=== PATIENT | male | born 1960 | race Caucasian/White ===

== ENCOUNTER → 2021-12-05 11:21 | Outpatient (CLI) | payer BC, SELFPAY ==
[2021-12-12 09:34] LABS: Pancreatic Elastase, Fecal 229 (>200)
== END ==
PROVIDERS: Visit Provider Internal Medicine Gastroenterology
DX: R10.13 Epigastric pain (principal); R14.0 Abdominal distension (gaseous); K21.9 Gastro-esophageal reflux disease without esophagitis; R14.2 Eructation; R12 Heartburn; R68.81 Early satiety
CPT/HCPCS: 82656

== ENCOUNTER 2021-12-23 19:52 | Emergency (ER) | payer BC, SELFPAY ==
[2021-12-23 19:53] VITALS: BP 148/92; PULSE 67; RESP 16; TEMP 36.7; O2SAT 97; BMI 27.8
--- NOTE | 2021-12-23 20:33 | CT_ITS ---
PROCEDURE INFORMATION: Exam: CT Abdomen And Pelvis Without Contrast Exam date and time: 12/23/2021 9:03 PM Age: 61 years old Clinical indication: Abdominal pain; Left; Patient HX: Lt flank pain; Additional info: Abd pain TECHNIQUE: Imaging protocol: Computed tomography of the abdomen and pelvis without contrast. Radiation optimization: All CT scans at this facility use at least one of these dose optimization techniques: automated exposure control; mA and/or kV adjustment per patient size (includes targeted exams where dose is matched to clinical indication); or iterative reconstruction. COMPARISON: No relevant prior studies available. FINDINGS: Diaphragm: Small-sized hiatal hernia. Liver: Hepatic steatosis. Gallbladder and bile ducts: Gallbladder surgically absent. Pancreas: Normal. Spleen: Splenic calcifications, compatible with prior granulomatous disease. Adrenal glands: Normal. No mass. Kidneys and ureters: Punctate nonobstructive bilateral nephrolithiasis. Left hydroureteronephrosis, with obstructive 2 mm calculus in the distal left ureter (series 3, image 105). Stomach and bowel: Colonic diverticulosis. Appendix: Appendix normal. Intraperitoneal space: Unremarkable. No free air. No significant fluid collection. Vasculature: Phleboliths within the pelvis. Lymph nodes: Unremarkable. No enlarged lymph nodes. Urinary bladder: Unremarkable as visualized. Reproductive: Unremarkable as visualized. Bones/joints: No acute abnormality. Soft tissues: Small bilateral fat containing inguinal hernias. IMPRESSION: Left hydroureteronephrosis, with obstructive 2 mm calculus in the distal left ureter (series 3, image 105).
[2021-12-23 20:45] LABS: Basophils % 0.4 % (0.1-2.0); Eosinophils # 0.1 K/mm3 (0.0-0.4); Eosinophils % 0.8 % (0.1-12.0); Hematocrit 42.3 % (42.0-52.0); Hemoglobin 15.4 g/dL (14.1-18.0); Lymphocytes # 2.4 K/mm3 (0.7-4.5); Lymphocytes % 31.7 % (10-50); Mean Corpuscular HGB Conc 36.4 g/dL (31.8-35.4); Mean Corpuscular Hemoglobin 31.7 pg (27.0-31.2); Mean Corpuscular Volume 86.9 fl (80-94); Mean Platelet Volume 9.2 fl (7.4-10.4); Monocytes % 13.3 % (1.7-9.3); Neutrophils # 4.1 K/mm3 (1.8-7.8); Neutrophils % 53.9 % (37.0-80.0); Platelet Count 168 K/mm3 (142-424); Red Blood Count 4.86 M/mm3 (4.60-6.20); Red Cell Distribution Width 13.1 % (11.5-17.5); White Blood Count 7.7 K/mm3 (4.8-10.8)
[2021-12-23 20:51] LABS: Alanine Aminotransferase 29 U/L (12-78); Albumin Level 4.2 g/dl (3.5-5.0); Albumin/Globulin Ratio 1.7 (1.1-1.8); Alkaline Phosphatase 40 U/L (38-126); Anion Gap 11.1 mEq/L (5-15); Aspartate Amino Transferase 39 U/L (17-59); Bilirubin,Total 0.8 mg/dl (0.2-1.3); Blood Urea Nitrogen 25 mg/dl (9-20); Calcium 9.2 mg/dl (8.4-10.2); Carbon Dioxide 27 mmol/L (22.0-30.0); Chloride 106 mmol/L (98-107); Creatinine Clearance Estimated 62 mL/min (50-200); Estimated Glomerular Filt Rate 44 ml/min (>60); GFR (African American) 53 ML/MIN (>60); Globulin 2.5 g/dL (1.3-3.2); Glucose 107 mg/dl (74-100); Potassium 4.1 mmoL/L (3.5-5.1); Sodium 140 mmol/L (136-145); Total Protein,Serum 6.7 g/dl (6.3-8.2)
[2021-12-23 20:56] LABS: C-Reactive Protein 1.1 mg/L (0-4)
[2021-12-23 21:09] LABS: Microscopic, Urine URINE MICROSCOPIC (MICROSCOPIC)
[2021-12-23 21:10] LABS: Appearance,Urine CLEAR (Clear); Bilirubin,Urine Negative (Negative); Blood, Urine 1+ (Negative); Color,Urine YELLOW (Yellow); Glucose,Urine (UA) Negative (Negative); Ketones,Urine Negative (Negative); Leukocyte Esterase,Urine Negative (Negative); Nitrate,Urine Negative (Negative); Protein,Urine Negative (Negative); Specific Gravity, Urine >= 1.030 (1.005-1.030); Urobilinogen,Urine 0.2 EU/dl (0.2)
[2021-12-23 21:10] LABS: Procalcitonin 0.112 ng/mL (0.0-2.0)
[2021-12-23 21:29] LABS: Erythrocyte Sedimentation Rate 2 mm/hr (0-20)
[2021-12-23 21:30] LABS: WBC,Urine Occasional #/hpf (0-3)
--- NOTE | 2021-12-23 21:36 | HMH.EDNVD ---
ED Disposition Clinical Impression: Renal colic on left side, Renal insufficiency Disposition: Home, Self-Care Condition on Discharge: Good Instructions: DI for Kidney Stones Additional Instructions: fluids and see pcp for follow up and urology Prescriptions: Tamsulosin HCl [Flomax 0.4mg capsule] 0.4 mg PO HS #10 cap Transmission Status: Pending to Medicine [facility] Referrals: Everardo Benitez [Primary Care Provider] - Dell Oden MD [Staff Physician] - - Critical Care Critical Care Time: No Attestation: On 12/23/21, the high probability of a clinically significant, sudden or life threatening deterioration of the following system(s) required my full and direct attention, intervention and personal management. The time I documented below is in addition to time spent performing reported procedures but includes the following listed in this critical care notation. Medical Decision Making - Medical Records Medical records reviewed: Yes: I reviewed the patient's medical records. - Denny Inquiry Pt receiving controlled substance: No Vital Signs: 12/23/21 19:53 Temperature 98.0 F Temperature Source Oral Pulse Rate [Right] 67 Respiratory Rate 16 Blood Pressure [Right Arm] 148/92 H Blood Pressure Mean [Right Arm] 110 02 Sat by Pulse Oximetry 97 - Lab Data Lab results reviewed: Yes: I reviewed the patient's lab results. Lab Results 12/23/21 20:25: WBC 7.7, RBC 4.86, Hgb 15.4, Hct 42.3, MCV 86.9, MCH 31.7 H, MCHC 36.4 H, RDW 13.1, Plt Count 168, MPV 9.2, Neut % (Auto) 53.9, Lymph % (Auto) 31.7, Tama % (Auto) 13.3 H, Eos % (Auto) 0.8, Baso % (Auto) 0.4, Neut # (Auto) 4.1, Lymph # (Auto) 2.4, Tama # (Auto) 1.0, Eos # (Auto) 0.1, Baso # (Auto) 0.0, ESR 2 12/23/21 20:25: Sodium 140, Potassium 4.1, Chloride 106, Carbon Dioxide 27, Anion Gap 11.1, BUN 25 H, Creatinine 1.60 H, Estimated Creat Clear 62, Estimated GFR 44 L, Est GFR ( Amer) 53 L, Glucose 107 H, Calcium 9.2, Total Bilirubin 0.8, AST 39, ALT 29, Alkaline Phosphatase 40, C-Reactive Protein 1.1, Total Protein 6.7, Albumin 4.2, Globulin 2.5, Albumin/Globulin Ratio 1.7, Procalcitonin 0.112 12/23/21 21:04: Urine Color Yellow, Urine Appearance Clear, Urine pH 6.0, Ur Specific [place] >= 1.030, Urine Protein Negative, Urine Glucose (UA) Negative, Urine Ketones Negative, Urine Blood 1+, Urine Nitrate Negative, Urine Bilirubin Negative, Urine Urobilinogen 0.2, Ur Leukocyte Esterase Negative, Urine RBC 3-5, Urine WBC Occasional, Ur Squamous Epith Cells None, Urine Bacteria None Result diagrams: 12/23/21 20:25 12/23/21 20:25 Orders (Tests/Meds): ED MEDICATIONS Generic Name Dose Route Start Last Admin Trade Name Freq PRN Reason Stop Dose Admin Sodium Chloride 1,000 mls @ 999 mls/hr 12/23/21 20:45 12/23/21 20:56 Sod Chlor 0.9% 1000ml Bag IV 12/23/21 21:45 999 mls/hr .[id number] LARRY Administration Discontinued Medications Generic Name Dose Route Start Last Admin Trade Name Freq PRN Reason Stop Dose Admin Ketorolac Tromethamine 30 mg 12/23/21 20:34 12/23/21 20:56 Ketorolac 30mg/Ml Vial IV 12/23/21 20:35 30 mg ONCE ONE Administration Ondansetron HCl 4 mg 12/23/21 20:34 12/23/21 20:56 Ondansetron 4mg/2ml Vial IV 12/23/21 20:35 4 mg ONCE ONE Administration Tamsulosin HCl 0.4 mg 12/24/21 21:00 Tamsulosin 0.4mg Capsule PO 01/23/22 20:59 HS LARRY Tamsulosin HCl 0.4 mg 12/23/21 22:32 Tamsulosin 0.4mg Capsule PO 12/23/21 22:33 ONCE ONE - CT Data CT Scan: Abdomen, Pelvis Time Received: 22:[address] Reviewed: Yes: I have viewed the radiologist's interpretation Preliminary Findings: Abnormal (2 mm lt stone ) Medical Decision Narrative: renal colic on lt with no gross hematuria Nausea/Vomiting/Diarrhea HPI - General Chief complaint: Abdominal Pain Stated complaint: adm pain Time Seen by Provider: 12/23/21 21:00 Mode of Arrival: Ambulatory Source of Information: Patient, Spouse, Me
[2021-12-23 22:38] VITALS: BP 134/78; PULSE 61; RESP 16; TEMP 36.7; O2SAT 98
== END 2021-12-23 22:49 | disposition home or self-care (01) ==
PROVIDERS: Emergency Provider Emergency Medicine; PCP Family Medicine
DX: N20.0 Calculus of kidney (principal); N28.9 Disorder of kidney and ureter, unspecified
CPT/HCPCS: 74176; 80053; 81001; 84145; 85025; 85651; 86140; 96365; 96375; 99284; J2405

== ENCOUNTER → 2022-12-03 08:14 | Outpatient (CLI) | payer OTHER, SELFPAY ==
--- NOTE | 2022-12-03 | CA_ITS ---
APPROVED REPORT Exam: Exercise Treadmill Technologist: Tyra Euceda, Ht: 5 ft 10 in Wt: 205 lbs BSA: 2.11 m2 HR: 54 bpm BP: 126/80 mmHg Rhythm: sinus jenelle, incomplete RBBB, low voltage QRS, cannot R/O old inferior CA Medical History Cardiac Risk Factors: HTN Stress Test Details Test: Shakir HR Resting HR: 61 bpm Max Heart Rate (APMHR): 158.578529 bpm Max HR Achieved: 140 bpm Target HR (85% APMHR): 134.087060 bpm % of APMHR: 88.61 Recovery HR: 116 bpm BP Resting BP: 121/81 mmHg Max BP: 169/79 mmHg Recovery BP: 169.0/79.0 mmHg ECG Resting ECG: sinus jenelle, incomplete RBBB, low voltage QRS, cannot R/O old inferior CA Clinical Exercise duration: 09:24 min Highest Stage Achieved: Exercise capacity: 10.1 METs Stress ECG Conclusion During shakir procotol 9:24 on shakir protocol. No CP noted or dizziness. No arrhythmias noted. RBBB developed during exercise which effects the anterior ST-T segment. Otherwise the ST response to exercise is within normal. Allowing for RBBB, GXT is normal. GXT only. Test Summary REST . . . . . . . Sitting REST . . . . . . . Standing REST 04:19 0.0 0.0 61 . 121/ 81 . . Stage 1 01:00 10.0 1.7 82 . . . . Stage 1 02:00 10.0 1.7 88 . . . . Stage 1 03:00 10.0 1.7 89 . 146/ 80 . . Stage 2 01:00 12.0 2.5 99 . . . . Stage 2 02:00 12.0 2.5 102 . . . . Stage 2 03:00 12.0 2.5 103 . 150/ 76 . . Stage 3 01:00 14.0 3.4 117 . . . . Stage 3 02:00 14.0 3.4 125 . . . . Stage 3 03:00 14.0 3.4 133 . 158/ 80 . . Stage 4 00:24 16.0 4.2 138 . . . Stop exercise at 09:24 RECOVERY 01:00 0.0 0.0 120 . . . . RECOVERY 02:00 0.0 0.0 91 . . . . RECOVERY 03:00 0.0 0.0 80 . 169/ 79 . . RECOVERY 04:00 0.0 0.0 82 . 156/ 76 . . RECOVERY 05:00 0.0 0.0 74 . 137/ 71 . . RECOVERY 05:35 0.0 0.0 72 . 137/ 71 . . Electronically signed by : Rashi Candelaria MD 12/03/2022 21:15:00
== END ==
PROVIDERS: PCP Family Medicine; Visit Provider Family Medicine
DX: R07.89 Other chest pain (principal)
CPT/HCPCS: 93017

== ENCOUNTER 2022-12-26 08:52 | Outpatient (CLI) | payer OTHER, SELFPAY ==
[2022-12-26 09:01] VITALS: BP 138/63; PULSE 53; RESP 18; TEMP 36.4; O2SAT 94; BMI 30.5
[2022-12-26 09:28] LABS: Anion Gap 11.2 mEq/L (5-15); Blood Urea Nitrogen 25 mg/dl (9-20); Calcium 8.6 mg/dl (8.4-10.2); Carbon Dioxide 30 mmol/L (22.0-30.0); Chloride 102 mmol/L (98-107); Creatinine Clearance Estimated 68 mL/min (50-200); Estimated Glomerular Filt Rate 47 ml/min (>60); GFR (African American) 57 ML/MIN (>60); Glucose 105 mg/dl (74-100); Potassium 4.2 mmoL/L (3.5-5.1); Sodium 139 mmol/L (136-145)
[2022-12-26 09:43] VITALS: BP 105/76; PULSE 52; RESP 18; O2SAT 99
--- NOTE | 2022-12-26 09:43 | PC.NURSE ---
Arrived to scan room, Pt lying on table for CT scan, no c/o at this time.
[2022-12-26 09:55] VITALS: BP 91/48; PULSE 47; RESP 18; O2SAT 99
--- NOTE | 2022-12-26 09:55 | PC.NURSE ---
Test complete, pt without c/o or reactions to dye.
--- NOTE | 2022-12-26 10:00 | PC.NURSE ---
Pt accompanied to waiting room where waiting. Pt to have another test requiring IV so #20 in R A/C left in place. Pt without C/O.
== END 2022-12-26 10:00 | disposition home or self-care (01) ==
LOC: RAD 08:53
PROVIDERS: PCP Family Medicine; Visit Provider Physician Assistant
DX: R07.9 Chest pain, unspecified (principal); R00.1 Bradycardia, unspecified; Q21.12 Patent foramen ovale; I10 Essential (primary) hypertension; E78.5 Hyperlipidemia, unspecified
CPT/HCPCS: 75574; 80048; 93306; Q9967

== ENCOUNTER → 2023-01-29 14:41 | Outpatient (POV) | payer OTHER, SELFPAY | PROVIDERS: Visit Provider Specialist/Technologist | DX: Z00.00 Encounter for general adult medical examination without abnormal findings (principal) ==

== ENCOUNTER → 2023-02-06 10:27 | Outpatient (CLI) | payer OTHER, SELFPAY | LOC: LAB 10:28 → RT 10:29 | PROVIDERS: PCP Family Medicine; Visit Provider Physician Assistant | DX: R42 Dizziness and giddiness (principal); R55 Syncope and collapse; R00.1 Bradycardia, unspecified; I10 Essential (primary) hypertension; I25.10 Atherosclerotic heart disease of native coronary artery without angina pectoris; N28.9 Disorder of kidney and ureter, unspecified; E78.5 Hyperlipidemia, unspecified | CPT/HCPCS: 93270 ==

== ENCOUNTER → 2023-02-18 12:39 | Outpatient (CLI) | payer OTHER, SELFPAY ==
--- NOTE | 2023-02-18 12:40 | CT_ITS ---
FINAL REPORT TECHNIQUE: Multiple axial CT angiography images were performed from the foramen magnum to the vertex before and during IV contrast administration. This study was performed with techniques to keep radiation doses as low as reasonably achievable (ALARA). Individualized dose reduction techniques using automated exposure control or adjustment of mA and/or kV according to the patient's size were employed. CLINICAL HISTORY: syncope, collapse, dizziness FINDINGS: No acute intracranial hemorrhage or large acute cortical infarct. The brain volume is normal for the patient's age. Ventricles are of bracket normal in size and configuration. No midline shift. The basal cisterns are patent. CTA HEAD: The major intracranial arterial system is patent without hemodynamically significant stenosis or major vessel occlusion.No aneurysm is identified. IMPRESSION: No acute intracranial hemorrhage or large acute cortical infarct. No evidence of vascular injury, aneurysm, hemodynamically significant stenosis or major vessel occlusion of the intracranial arterial system. Reviewed, Interpreted and Dictated by Shiraz Canela III, MD Transcribed by Julianna Meyer Authenticated and . [facility]
--- NOTE | 2023-02-18 12:40 | CT_ITS ---
FINAL REPORT TECHNIQUE: Thin section axial CT with IV contrast supplemented with multiplanar reconstruction under CT angiogram protocol. This study was performed with techniques to keep radiation doses as low as reasonably achievable (ALARA). Individualized dose reduction techniques using automated exposure control or adjustment of mA and/or kV according to the patient''s size were employed. NASCET criteria was utilized during interpretation. CLINICAL HISTORY: dizziness/near syncope FINDINGS: Aortic arch: Arch shows no significant narrowing. Great vessel origins are widely patent. Right carotid: No significant stenosis is seen of the cervical common or internal carotid artery. Left carotid: No significant stenosis is seen of the cervical common or internal carotid artery. Vertebral: Left vertebral artery is dominant. No significant stenosis is present. IMPRESSION: No significant stenosis identified. Reviewed, Interpreted and Dictated by Shiraz Canela III, MD Transcribed by Julianna Meyer Authenticated and [facility]
[2023-02-18 13:20] LABS: Blood Urea Nitrogen 23 mg/dl (9-20); Estimated Glomerular Filt Rate 56 ml/min (>60); GFR (African American) 68 ML/MIN (>60)
== END ==
PROVIDERS: PCP Family Medicine; Visit Provider Nurse Practitioner
DX: R42 Dizziness and giddiness (principal); R55 Syncope and collapse; R00.1 Bradycardia, unspecified; I25.10 Atherosclerotic heart disease of native coronary artery without angina pectoris; I10 Essential (primary) hypertension; E78.5 Hyperlipidemia, unspecified; N28.9 Disorder of kidney and ureter, unspecified
CPT/HCPCS: 36415; 70496; 70498; 82565; 84520; Q9967

== ENCOUNTER → 2023-02-25 12:08 | Outpatient (POV) | payer OTHER, SELFPAY | PROVIDERS: Visit Provider Specialist/Technologist | DX: Z00.00 Encounter for general adult medical examination without abnormal findings (principal) ==

== ENCOUNTER 2023-09-07 15:15 | Emergency (ER) | payer OTHER, SELFPAY ==
[2023-09-07] VITALS (20 sets, daily range): BP systolic 127–192; BP diastolic 89–122; PULSE 50–66; RESP 9–19; TEMP 36.8; O2SAT 95–100; BMI 29.4
--- NOTE | 2023-09-07 15:10 | ECG_ITS ---
APPROVED REPORT Exam: Resting ECG HR:59 bpm ECG Measurements Heart Rate 59 AXES ND 182 P 51 QRSd 109 QRS -1 QT 401 T 11 QTc 401 Conclusion SINUS BRADYCARDIA LOW QRS VOLTAGE IN PRECORDIAL LEADS [QRS DEFLECTION < 1.0 mV IN CHEST LEADS] BORDERLINE ECG UNCONFIRMED REPORT Electronically signed by : Rashi Candelaria MD 09/07/2023 19:55:49
--- NOTE | 2023-09-07 15:17 | XR_ITS ---
FINAL REPORT CLINICAL HISTORY: Precordial chest pain COMPARISON: None FINDINGS: PA and lateral views of the chest are obtained. There is no prior exam for comparison. The cardiac and mediastinal silhouettes are within normal limits. The lungs are clear. There is no pleural effusion, pneumothorax, or acute osseous abnormality. IMPRESSION: No radiographic evidence of acute cardiac or pulmonary disease. Reviewed, Interpreted and Dictated by Yanet Juárez MD Transcribed by Yancy Chu Authenticated and [facility]
--- NOTE | 2023-09-07 15:21 | ED_ITS ---
I was consulted by the ULISES, and we discussed the complexity of the problems being addressed. I approved the treatment and management plan for this patient's care in the emergency department, thus performing a substantive portion of the medical decision making. Khalif Higgins MD, MARICARMEN, FACE Discharge Plan Disposition Patient Disposition: Home, Self-Care Condition: Good Prescriptions Prescriptions: No Action celecoxib 200 mg capsule 200 mg PO BID fenofibrate micronized 134 mg capsule 134 mg PO HS pantoprazole 40 mg tablet,delayed release (DR/EC) 40 mg PO DAILY aspirin 81 mg tablet 81 mg PO DAILY Beano 400 unit tablet 800 unit PO DAILY PRN (Reason: Gastric Reflux) lisinopril 20 mg tablet 20 mg PO DAILY Qty: 90 1RF metoprolol tartrate 25 mg tablet See Rx Instructions .ROUTE .COMPLEX Qty: 60 5RF Dose Instruction: TAKE ONE TABLET BY MOUTH TWICE DAILY FOR BLOOD PRESSURE Rx Instructions: TAKE ONE TABLET BY MOUTH TWICE DAILY FOR BLOOD PRESSURE atorvastatin 40 mg tablet See Rx Instructions .ROUTE .COMPLEX Qty: 90 1RF Dose Instruction: TAKE ONE TABLET BY MOUTH ONCE DAILY Rx Instructions: TAKE ONE TABLET BY MOUTH ONCE DAILY tamsulosin 0.4 MG capsule 0.4 mg PO HS Referrals Follow up/Referrals: Felton Lombardi MD [Staff Physician] - See instructions ProviderJeramy MD [Referring] - See instructions Activity Restrictions/Add. Instructions Additional Instructions/Restrictions: Show up to Dr. Lombardi's clinic at 9 AM or at least call for appointment. Return to the ER if any worsening symptomology or as needed. Clinical Impressions Clinical Impression: Dizziness, Chest pain Discharge ED Provider: Khalif Higgins HPI <JACKSON Abreu - Last Filed: 09/07/23 20:32> General Chief Complaint: Chest Pain Stated Complaint: Chest Pain Time Seen by Provider: 09/07/23 15:21 Mode of Arrival: Wheelchair Source of Information: Patient Limitations: No Limitations Description of Symptoms (Recalled from ER Triage Doc. by RN): Pt reports elevated BP for 2 days and has had c/o intermittent, sharp chest pain since last night. Pt reports home BP of 160's/100's. Also endorses nausea, BUTT, dizziness. History of Present Illness HPI narrative: Has a longstanding history of hypertension who follows with Dr. Lombardi's group. Patient reports headache dizziness and intermittent sharp left-sided chest pain that per his report radiates down his left arm occasionally but not persistently. Patient has no diaphoresis no nausea no vomiting no diarrhea no shortness of breath no sick contacts. Headache bihemispheric with no focal neurologic symptoms including visual changes. Patient does report dizziness intermittently. Related Data Home Medications Medication Instructions Recorded Confirmed [id number] 400 unit 800 unit PO DAILY PRN Gastric 12/10/22 06/01/23 tablet (Beano) Reflux aspirin 81 mg tablet 81 mg PO DAILY Blood thinner 12/10/22 06/01/23 celecoxib 200 mg capsule 200 mg PO BID Arthritis 12/10/22 06/01/23 fenofibrate micronized 134 mg 134 mg PO HS Cholesterol 12/10/22 06/01/23 capsule pantoprazole 40 mg tablet,delayed 40 mg PO DAILY Acid reflux 12/10/22 06/01/23 release tamsulosin 0.4 mg capsule 0.4 mg PO HS urination 12/26/22 06/01/23 Previous Rx's Medication Instructions Recorded lisinopril 20 mg tablet 20 mg PO DAILY #90 tabs 04/28/23 metoprolol tartrate 25 mg tablet See Rx Instructions .Route 06/15/23 .COMPLEX #60 tabs atorvastatin 40 mg tablet See Rx Instructions .Route 09/01/23 .COMPLEX #90 tabs Allergies Allergy/AdvReac Type Severity Reaction Status Date / Time No Known Allergies Allergy Verified 06/01/23 08:38 [facility] <JACKSON Abreu - Last Filed: 09/07/23 20:32> [facility] Disclaimer: The information contained in this section may have been updated after the patient was seen, as this information can be updated by other users. Medical History Coronary artery disease Excessive cerumen in left ear canal Hearing loss HTN (hypertension) Near syncope Surgical History H/O hernia repair History of cholecystectomy Family History Father Cancer Mother Coronary artery disease Diabetes Sister Hypertension Brother Hypertension Stroke Social History Smoking Status: Never smoker alcohol intake: current substance use type: denies use current occupational status: employed Travel in the last 8 weeks: Inside the [place] <JACKSON Abreu - Last Filed: 09/07/23 20:32> ROS Obtained: Yes Systems reviewed as appropriate & no additional complaints except as documented Physical Exam <JACKSON Abreu - Last Filed: 09/07/23 20:32> General General appearance: alert and in no apparent distress Head Head exam: atraumatic and normocephalic Eye Eye exam: Present normal appearance, PERRL and EOMI; Absent scleral icterus or conjunctival redness ENT ENT exam: Present normal exam and normal oropharynx Neck Neck exam: Present normal inspection, full ROM and other (No carotid bruits) Chest Chest inspection: Present normal inspection, symmetric chest wall rise and tenderness Respiratory Respiratory exam: Present normal lung sounds bilaterally and respiratory distress Cardiovascular Cardiovascular exam: Present regular rate, bradycardia (Sinus), normal heart sounds, +S1 and +S2 Abdominal Exam Abdominal exam: Present soft, tenderness and normal bowel sounds Extremities Exam Extremities exam: Present normal inspection Neurological Exam Neurological exam: Present alert, oriented X3, CN II-XII intact and normal gait; Absent motor sensory deficit Psychiatric Psychiatric exam: Present normal affect and normal mood Skin Skin exam: Present warm, dry, intact and normal color HEART Score <JACKSON Abreu - Last Filed: 09/07/23 20:32> HEART Score HEART Score assessment performed?: Yes History (anamnesis): Moderately suspicious ECG: Normal Age: 45-65 years Risk factors: 3 or more risk factors Troponin: </= normal limit HEART Score: 4 Critical Care <JACKSON Abreu - Last Filed: 09/07/23 20:32> Critical Care Time Critical Care Time: No Medical Decision Making <JACKSON Abreu - Last Filed: 09/07/23 20:32> Medical Records Medical records reviewed: Yes I reviewed the patient's medical records. Denny Inquiry Pt receiving controlled substance: No Vital Signs Vital Signs: 09/07/23 15:15 09/07/23 15:31 09/07/23 15:44 Temperature 98.2 F Temperature Source Oral Pulse Rate 56 L 55 L Pulse Rate [Apical] 58 L Respiratory Rate 16 14 16 Blood Pressure 161/94 H 161/98 H Blood Pressure [Right Arm] 183/99 H Blood Pressure Mean Blood Pressure Mean [Right Arm] 127 Blood Pressure Source [Right Arm] Automatic Cuff Blood Pressure Position [Right Arm] Sitting 02 Sat by Pulse Oximetry 96 96 96 Oxygen Delivery Method Room Air 09/07/23 15:51 09/07/23 16:00 09/07/23 16:12 Temperature Temperature Source Pulse Rate 58 L 66 60 Pulse Rate [Apical] Respiratory Rate 15 16 14 Blood Pressure 156/96 H 158/97 H 167/100 H Blood Pressure [Right Arm] Blood Pressure Mean Blood Pressure Mean [Right Arm] Blood Pressure Source [Right Arm] Blood Pressure Position [Right Arm] 02 Sat by Pulse Oximetry 96 95 96 Oxygen Delivery Method 09/07/23 16:21 09/07/23 16:31 09/07/23 16:41 Temperature Temperature Source Pulse Rate 55 L 56 L 56 L Pulse Rate [Apical] Respiratory Rate 9 L 15 11 L Blood Pressure 143/91 H 131/103 H 137/93 H Blood Pressure [Right Arm] Blood Pressure Mean Blood Pressure Mean [Right Arm] Blood Pressure Source [Right Arm] Blood Pressure Position [Right Arm] 02 Sat by Pulse Oximetry 96 97 98 Oxygen Delivery Method 09/07/23 17:01 09/07/23 17:11 09/07/23 17:30 Temperature Temperature Source Pulse Rate 55 L 57 L 54 L Pulse Rate [Apical] Respiratory Rate 15 18 18 Blood Pressure 166/91 H 127/105 H Blood Pressure [Right Arm] Blood Pressure Mean 109 Blood Pressure Mean [Right Arm] Blood Pressure Source [Right Arm] Blood Pressure Position [Right Arm] 02 Sat by Pulse Oximetry 95 97 96 Oxygen Delivery Method 09/07/23 18:30 09/07/23 19:00 09/07/23 19:10 Temperature Temperature Source Pulse Rate 51 L 58 L 52 L Pulse Rate [Apical] Respiratory Rate 18 19 13 Blood Pressure 139/99 H 161/89 H 163/113 H Blood Pressure [Right Arm] Blood Pressure Mean 117 133 Blood Pressure Mean [Right Arm] Blood Pressure Source [Right Arm] Blood Pressure Position [Right Arm] 02 Sat by Pulse Oximetry 96 98 97 Oxygen Delivery Method 09/07/23 19:21 09/07/23 19:30 09/07/23 19:40 Temperature Temperature Source Pulse Rate 54 L 51 L 51 L Pulse Rate [Apical] Respiratory Rate 14 14 14 Blood Pressure 171/101 H 191/122 H 192/97 H Blood Pressure [Right Arm] Blood Pressure Mean 124 145 148 Blood Pressure Mean [Right Arm] Blood Pressure Source [Right Arm] Blood Pressure Position [Right Arm] 02 Sat by Pulse Oximetry 97 98 97 Oxygen Delivery Method 09/07/23 20:00 Temperature Temperature Source Pulse Rate 50 L Pulse Rate [Apical] Respiratory Rate 15 Blood Pressure 169/98 H Blood Pressure [Right Arm] Blood Pressure Mean 134 Blood Pressure Mean [Right Arm] Blood Pressure Source [Right Arm] Blood Pressure Position [Right Arm] 02 Sat by Pulse Oximetry 97 Oxygen Delivery Method Lab Data Lab results reviewed: Yes I reviewed the patient's lab results. Labs: Lab Results 09/07/23 15:15: WBC 3.8 L, RBC 4.70, Hgb 15.2, Hct 44.3, MCV 94.4 H, MCH 32.3 H, MCHC 34.2, RDW 13.3, Plt Count 135 L, MPV 9.8, Neut % (Auto) 36.9 L, Lymph % (Auto) 49.7, [place] % (Auto) 11.4 H, Eos % (Auto) 1.2, Baso % (Auto) 0.8, Neut # (Auto) 1.4 L, Lymph # (Auto) 1.9, [place] # (Auto) 0.4, Eos # (Auto) 0.1, Baso # (Auto) 0.0, D-Dimer 0.42, Sodium 139, Potassium 3.9, Chloride 109 H, Carbon Dioxide 33 H, Anion Gap 0.9 L, BUN 23 H, Creatinine 1.40 H, Estimated Creat Clear 71, Estimated GFR 51 L, Est GFR ( Amer) 62, Glucose 106 H, Calcium 8.5, Total Bilirubin 1.0, AST 38, ALT 32, Alkaline Phosphatase 43, Troponin I < 0.01, Total Protein 6.0 L, Albumin 3.7, Globulin 2.3, Albumin/Globulin Ratio 1.6 09/07/23 18:22: Troponin I < 0.01 09/07/23 15:15 09/07/23 15:15 Response Orders (Tests/Meds): ED MEDICATIONS Generic Name Dose Route Start Last Admin Trade Name Freq PRN Reason Stop Dose Admin Lactated Ringer's 1,000 mls @ 999 mls/hr 09/07/23 19:44 09/07/23 19:53 Lactated Ringer's 1000 Ml Bag IV 09/07/23 20:44 999 mls/hr .Q1H1M ONE Administration Discontinued Medications Generic Name Dose Route Start Last Admin Trade Name Domonique PRN Reason Stop Dose Admin Acetaminophen 1,000 mg 09/07/23 15:45 09/07/23 15:58 Acetaminophen 1,000mg/100ml Vial IV 09/07/23 15:46 1,000 mg ONCE ONE Administration Diphenhydramine HCl 25 mg 09/07/23 19:44 09/07/23 19:53 Diphenhydramine 50mg/Ml Vial IV 09/07/23 19:45 25 mg ONCE ONE Administration Ketorolac Tromethamine 15 mg 09/07/23 15:45 09/07/23 15:59 Ketorolac 30mg/Ml Vial IV 09/07/23 15:46 15 mg ONCE ONE Administration Prochlorperazine Edisylate 10 mg 09/07/23 19:44 09/07/23 19:53 Prochlorperazine 10mg/2ml Vial IV 09/07/23 19:45 10 mg ONCE ONE Administration ORDERS Category Date Time Status CXR 2 view (NOT portable) [XR chest 2V] Stat Exams 09/07/23 15:17 Completed Complete Blood Count Auto Diff Stat Lab 09/07/23 15:15 Completed Comprehensive Metabolic Panel Stat Lab 09/07/23 15:15 Completed D-Dimer Stat Lab 09/07/23 15:15 Completed Troponin I Q3H Lab 09/07/23 18:22 Completed Troponin I Q3H Lab 09/07/23 21:30 Ordered Troponin I Stat Lab 09/07/23 15:15 Completed ECG initial Besson Routine Y 09/07/23 15:10 Completed MDM Narrative Medical Decision Narrative: In summary patient is a 63-year-old male who presents to the emergency department for evaluation of chest pain and headache. Patient has a initial blood pressure of 183/99 with a pulse of 58 normal respiratory rate afebrile satting at 96% on room air. Physical exam is unremarkable for any type of reproducible head pain. Patient has no meningeal signs no deformities contusions abrasions nystagmus nuchal rigidity. Breath sounds are equal bilaterally to the bases. Patient has sinus bradycardia on the monitor with a rate in the 50s. Patient has normal gait.. Differential diagnosis includes subarachnoid hemorrhage ACS malignant hypertension PE, infection either viral or bacterial etc. Initial workup will be conducted with twelve-lead EKG hematologic labs plain film chest x-ray. Initial interventions include Tylenol and Toradol. Initial workup reviewed by me shows that his hematologic labs are nonactionable. His initial troponin is undetectable. His initial twelve-lead EKG shows sinus bradycardia without any evidence of ACS. I informally interpreted his plain film chest x-ray which shows no acute processes. Upon repeat evaluation patient had only mild resolution of his chest pain and headache. Patient now dosed with Benadryl Compazine and a 500 cc bolus. Second troponin is undetectable as well. I had a long discussion regarding the patient's laboratory and x-ray results. Patient declined rapid flu and COVID testing. Discussed with the patient the findings that rule out a life- threatening neurologic or cardiac cause including dissection ACS PE precluding further imaging in the emergency department. 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 Patient needed to keep a blood pressure log to see what his blood pressure is doing in the interval. Patient will follow-up with cardiology in the a.m. <Khalif Higgins MD - Last Filed: 09/07/23 15:47> Vital Signs Vital Signs: 09/07/23 15:15 09/07/23 15:31 09/07/23 15:44 Temperature 98.2 F Temperature Source Oral Pulse Rate 56 L 55 L Pulse Rate [Apical] 58 L Respiratory Rate 16 14 16 Blood Pressure 161/94 H 161/98 H Blood Pressure [Right Arm] 183/99 H Blood Pressure Mean Blood Pressure Mean [Right Arm] 127 Blood Pressure Source [Right Arm] Automatic Cuff Blood Pressure Position [Right Arm] Sitting 02 Sat by Pulse Oximetry 96 96 96 Oxygen Delivery Method Room Air 09/07/23 15:51 09/07/23 16:00 09/07/23 16:12 Temperature Temperature Source Pulse Rate 58 L 66 60 Pulse Rate [Apical] Respiratory Rate 15 16 14 Blood Pressure 156/96 H 158/97 H 167/100 H Blood Pressure [Right Arm] Blood Pressure Mean Blood Pressure Mean [Right Arm] Blood Pressure Source [Right Arm] Blood Pressure Position [Right Arm] 02 Sat by Pulse Oximetry 96 95 96 Oxygen Delivery Method 02/26/24 16:21 09/07/23 16:31 09/07/23 16:41 Temperature Temperature Source Pulse Rate 55 L 56 L 56 L Pulse Rate [Apical] Respiratory Rate 9 L 15 11 L Blood Pressure 143/91 H 131/103 H 137/93 H Blood Pressure [Right Arm] Blood Pressure Mean Blood Pressure Mean [Right Arm] Blood Pressure Source [Right Arm] Blood Pressure Position [Right Arm] 02 Sat by Pulse Oximetry 96 97 98 Oxygen Delivery Method 09/07/23 17:01 09/07/23 17:11 09/07/23 17:30 Temperature Temperature Source Pulse Rate 55 L 57 L 54 L Pulse Rate [Apical] Respiratory Rate 15 18 18 Blood Pressure 166/91 H 127/105 H Blood Pressure [Right Arm] Blood Pressure Mean 109 Blood Pressure Mean [Right Arm] Blood Pressure Source [Right Arm] Blood Pressure Position [Right Arm] 02 Sat by Pulse Oximetry 95 97 96 Oxygen Delivery Method 09/07/23 18:30 09/07/23 19:00 09/07/23 19:10 Temperature Temperature Source Pulse Rate 51 L 58 L 52 L Pulse Rate [Apical] Respiratory Rate 18 19 13 Blood Pressure 139/99 H 161/89 H 163/113 H Blood Pressure [Right Arm] Blood Pressure Mean 117 133 Blood Pressure Mean [Right Arm] Blood Pressure Source [Right Arm] Blood Pressure Position [Right Arm] 02 Sat by Pulse Oximetry 96 98 97 Oxygen Delivery Method 09/07/23 19:21 09/07/23 19:30 09/07/23 19:40 Temperature Temperature Source Pulse Rate 54 L 51 L 51 L Pulse Rate [Apical] Respiratory Rate 14 14 14 Blood Pressure 171/101 H 191/122 H 192/97 H Blood Pressure [Right Arm] Blood Pressure Mean 124 145 148 Blood Pressure Mean [Right Arm] Blood Pressure Source [Right Arm] Blood Pressure Position [Right Arm] 02 Sat by Pulse Oximetry 97 98 97 Oxygen Delivery Method 09/07/23 20:00 Temperature Temperature Source Pulse Rate 50 L Pulse Rate [Apical] Respiratory Rate 15 Blood Pressure 169/98 H Blood Pressure [Right Arm] Blood Pressure Mean 134 Blood Pressure Mean [Right Arm] Blood Pressure Source [Right Arm] Blood Pressure Position [Right Arm] 02 Sat by Pulse Oximetry 97 Oxygen Delivery Method Lab Data Labs: Lab Results 09/07/23 15:15: WBC 3.8 L, RBC 4.70, Hgb 15.2, Hct 44.3, MCV 94.4 H, MCH 32.3 H, MCHC 34.2, RDW 13.3, Plt Count 135 L, MPV 9.8, Neut % (Auto) 36.9 L, Lymph % (Auto) 49.7, [place] % (Auto) 11.4 H, Eos % (Auto) 1.2, Baso % (Auto) 0.8, Neut # (Auto) 1.4 L, Lymph # (Auto) 1.9, [place] # (Auto) 0.4, Eos # (Auto) 0.1, Baso # (Auto) 0.0, D-Dimer 0.42, Sodium 139, Potassium 3.9, Chloride 109 H, Carbon Dioxide 33 H, Anion Gap 0.9 L, BUN 23 H, Creatinine 1.40 H, Estimated Creat Clear 71, Estimated GFR 51 L, Est GFR ( Amer) 62, Glucose 106 H, Calcium 8.5, Total Bilirubin 1.0, AST 38, ALT 32, Alkaline Phosphatase 43, Troponin I < 0.01, Total Protein 6.0 L, Albumin 3.7, Globulin 2.3, Albumin/Globulin Ratio 1.6 09/07/23 18:22: Troponin I < 0.01 Response Orders (Tests/Meds): ED MEDICATIONS Generic Name Dose Route Start Last Admin Trade Name Freq PRN Reason Stop Dose Admin Lactated Ringer's 1,000 mls @ 999 mls/hr 09/07/23 19:44 09/07/23 19:53 Lactated Ringer's 1000 Ml Bag IV 09/07/23 20:44 999 mls/hr .Q1H1M ONE Administration Discontinued Medications Generic Name Dose Route Start Last Admin Trade Name Freq PRN Reason Stop Dose Admin Acetaminophen 1,000 mg 09/07/23 15:45 09/07/23 15:58 Acetaminophen 1,000mg/100ml Vial IV 09/07/23 15:46 1,000 mg ONCE ONE Administration Diphenhydramine HCl 25 mg 09/07/23 19:44 09/07/23 19:53 Diphenhydramine 50mg/Ml Vial IV 09/07/23 19:45 25 mg ONCE ONE Administration Ketorolac Tromethamine 15 mg 09/07/23 15:45 09/07/23 15:59 Ketorolac 30mg/Ml Vial IV 09/07/23 15:46 15 mg ONCE ONE Administration Prochlorperazine Edisylate 10 mg 09/07/23 19:44 09/07/23 19:53 Prochlorperazine 10mg/2ml Vial IV 09/07/23 19:45 10 mg ONCE ONE Administration ORDERS Category Date Time Status CXR 2 view (NOT portable) [XR chest 2V] Stat Exams 09/07/23 15:17 Completed Complete Blood Count Auto Diff Stat Lab 09/07/23 15:15 Completed Comprehensive Metabolic Panel Stat Lab 09/07/23 15:15 Completed D-Dimer Stat Lab 09/07/23 15:15 Completed Troponin I Q3H Lab 09/07/23 18:22 Completed Troponin I Q3H Lab 09/07/23 21:30 Ordered Troponin I Stat Lab 09/07/23 15:15 Completed ECG initial Besson Routine Y 09/07/23 15:10 Completed ECG Data Tracing #1: Attestation: I reviewed this ECG and interpreted as documented below: ECG Narrative: Sinus bradycardia ventricular rate of 59 no acute ischemic changes noted there is a negative deflection aVF left axis deviation no significant conduction abnormalities
[2023-09-07 15:32] LABS: Basophils % 0.8 % (0.1-2.0); Eosinophils # 0.1 K/mm3 (0.0-0.4); Eosinophils % 1.2 % (0.1-12.0); Hematocrit 44.3 % (42.0-52.0); Hemoglobin 15.2 g/dL (14.1-18.0); Lymphocytes # 1.9 K/mm3 (0.7-4.5); Lymphocytes % 49.7 % (10-50); Mean Corpuscular HGB Conc 34.2 g/dL (31.8-35.4); Mean Corpuscular Hemoglobin 32.3 pg (27.0-31.2); Mean Corpuscular Volume 94.4 fl (80-94); Mean Platelet Volume 9.8 fl (7.4-10.4); Monocytes # 0.4 K/mm3 (0.1-1.0); Monocytes % 11.4 % (1.7-9.3); Neutrophils # 1.4 K/mm3 (1.8-7.8); Neutrophils % 36.9 % (37.0-80.0); Platelet Count 135 K/mm3 (142-424); Red Cell Distribution Width 13.3 % (11.5-17.5); White Blood Count 3.8 K/mm3 (4.8-10.8)
[2023-09-07 15:39] LABS: Chloride 109 mmol/L (98-107)
[2023-09-07 15:40] LABS: Potassium 3.9 mmoL/L (3.5-5.1); Sodium 139 mmol/L (136-145)
[2023-09-07 15:42] LABS: Alanine Aminotransferase 32 U/L (12-78); Alkaline Phosphatase 43 U/L (38-126); Anion Gap 0.9 mEq/L (5-15); Aspartate Amino Transferase 38 U/L (17-59); Blood Urea Nitrogen 23 mg/dl (9-20); Carbon Dioxide 33 mmol/L (22.0-30.0); Creatinine Clearance Estimated 71 mL/min (50-200); Estimated Glomerular Filt Rate 51 ml/min (>60); GFR (African American) 62 ML/MIN (>60)
[2023-09-07 15:43] LABS: Albumin Level 3.7 g/dl (3.5-5.0); Albumin/Globulin Ratio 1.6 (1.1-1.8); Calcium 8.5 mg/dl (8.4-10.2); Globulin 2.3 g/dL (1.3-3.2); Glucose 106 mg/dl (74-100)
[2023-09-07 15:55] LABS: Troponin I < 0.01 ng/ml (0.00-0.034)
[2023-09-07] MEDS: ACETAMINOPHEN 1,000MG/100ML VIAL 1000 MG IV (15:58)
[2023-09-07] MEDS: KETOROLAC 30MG/ML VIAL 15 MG IV (15:59)
[2023-09-07 16:08] LABS: D-Dimer 0.42 ug/mL (0.0-0.5)
--- NOTE | 2023-09-07 16:14 | PC.NURSE ---
Noemí rounded on pt. No new updates or concerns. Pt is stable.
[2023-09-07 19:28] LABS: Troponin I < 0.01 ng/ml (0.00-0.034)
[2023-09-07] MEDS: LACTATED RINGERS 1000ML 1,000 ML 999 ML IV (19:53)
[2023-09-07] MEDS: diphenhydrAMINE 50MG/ML VIAL 25 MG IV (19:53)
[2023-09-07] MEDS: PROCHLORPERAZINE 10MG/2ML VIAL 10 MG IV (19:53)
== END 2023-09-07 20:45 | disposition home or self-care (01) ==
PROVIDERS: Physician Assistant; Emergency Provider Student in an Organized Health Care Education/Training Program; PCP Family Medicine
DX: R07.9 Chest pain, unspecified (principal); R42 Dizziness and giddiness; R51.9 Headache, unspecified; R11.0 Nausea; R00.1 Bradycardia, unspecified; I25.10 Atherosclerotic heart disease of native coronary artery without angina pectoris; I10 Essential (primary) hypertension
CPT/HCPCS: 71046; 80053; 84484; 85025; 85378; 93005; 96361; 96374; 96375; 99285; J0131

== ENCOUNTER 2023-10-05 11:47 | Outpatient (CLI) | payer OTHER, SELFPAY ==
--- NOTE | 2023-10-05 11:48 | NM_ITS ---
APPROVED REPORT Exam: Nuclear Stress Test Indication: HTN, HYPERLIPIDEMIA, FM HX, C.P., SOB Patient Location: Outpatient Stress Tech: Sun Hawkins [place] Tech:Madison Coates, ARRT, RT (R)(N) Ht: 5 ft 10 in Wt: 210 lbs HR: 61 bpm BP: 149/96 mmHg BSA: 2.13 m2 Rhythm: NSR TID: 1.10 BMI: 30.1 History: HTN, HYPERLIPIDEMIA, FM HX, C.P., SOB Procedure: Patient exercised on Shakir protocol 8:00 minutes and sec, resting heart rate 16 bpm, resting blood pressure 149/96 mmHg, with exercise maximum heart rate achived was 139 bpm which is 89 % of the maximum predicted heart rate and blood pressure was 206/91 mmHg. Test was stopped due to FATIGUE, SOB. Patient denied any complaint of chest pain. Patient has average exercise capacity, achieved 10.1 METs of workload on treadmill, the blood pressure response to exercise was exaggerated. Cardiac Stress and Resting SPECT Images: Cardiac Stress and Resting SPECT images were obtained using technetium 99m Myoview 30.4 mCi stress and 10.18 mCi at rest. Resting and stress imaging in supine and prone positions demonstrate a medium-sized, moderate, partially reversible perfusion defects in the basal to mid inferior LV fraser. Gated imaging demonstrates low-normal global LV systolic function. There is mild hypokinesis of the basal inferior LV fraser. LVEF is calculated at 50%. Conclusion: Medium-sized, moderate, partially reversible perfusion defects in the basal to mid inferior LV fraser. Findings are suggestive of partial reversible ischemia. Gated imaging demonstrates low-normal global LV systolic function. There is mild hypokinesis of the basal inferior LV fraser. LVEF is calculated at 50%. Of note, the patient had an exaggerated hypertensive BP response to exercise. Additional BP control is recommended. Electronically signed by : Sherry Echevarria MD 10/06/2023 22:48:09
[2023-10-05] MEDS: SODIUM CHLORIDE 0.9% 10ML SYR (RAD ONLY) 10 ML IV ×2 (13:52)
[2023-10-05] MEDS: ISOTOPE MYOVIEW (PER STUDY) 1 DOSE IV (13:52)
--- NOTE | 2023-10-05 14:27 | CA_ITS ---
APPROVED REPORT Exam: Exercise Treadmill Technologist: Sun Paulson, Ht: 5 ft 10 in Wt: 212 lbs BSA: 2.14 m2 HR: 55 bpm BP: 148/87 mmHg Rhythm: NSR Medical History Medications: Amlodipine,,,,, Lisinopril,,,,, Aspirin,,,,, Metoprolol,,,,, Pantoprazole,,,,, Atorvastatin,,,,, TAMSULOSIN,,,,, FeNOfibrate,,,,, Celecoxib,,,,, MicroNIZED,,,,, Stress Test Details Test: Shakir HR Resting HR: 61 bpm Max Heart Rate (APMHR): 157 bpm Max HR Achieved: 139 bpm Target HR (85% APMHR): 133 bpm % of APMHR: 89 HR response to stress: Normal HR response to stress BP Resting BP: 149.0/96 mmHg Max BP: 206/91 mmHg Recovery BP: 159.0/85.0 mmHg BP response to stress: Abnormal hypertensive response to stress. ECG Resting ECG: NSR, Incomplete RBBB Stress EC.[address] depression Arrhythmia: PVCs Recovery ECG: Return to baseline within 3 minutes of recovery Recovery Arrhythmia: PVCs Clinical Exercise duration: 08:00 min Highest Stage Achieved: III Exercise capacity: 10.1 METs Overall Exercise Capacity for Age: Average Stress ECG Conclusion The patient was able to exercise for a total of 8m, 0s. He achieved a total of 10.1 METs. He has average exercise capacity compared to age and sex matched peers. He has normal HR, but exaggerated hypertensive BP, response to exercise. Max HR: 138 % of PM: 104 Max BP: 206/91 (in recovery) Test stopped due to: Fatigue Symptoms: No CP Arrhythmias/Ectopy: occasional PVCs ST-T Changes: 0.[address] depression Conclusion: Average exercise capacity. Hypertensive BP response to exercise. Non-diagnostic ECG stress due to baseline RBBB. Myoview images are reported separately. Test Summary REST . . . . . . . Sitting REST . . . . . . . Standing REST 11:04 0.0 0.0 61 . 149/ 96 . . Stage 1 01:00 10.0 1.7 83 . . . . Stage 1 02:00 10.0 1.7 79 . . . . Stage 1 03:00 10.0 1.7 79 . 170/ 98 . . Stage 2 01:00 12.0 2.5 88 . . . . Stage 2 02:00 12.0 2.5 97 . . . . Stage 2 03:00 12.0 2.5 106 . 182/100 . . Stage 3 01:00 14.0 3.4 127 . . . . Stage 3 02:00 14.0 3.4 138 . . . Stop exercise at 08:00 RECOVERY 01:00 0.0 0.0 120 . . . . RECOVERY 02:00 0.0 0.0 90 . . . . RECOVERY 03:00 0.0 0.0 75 . . . . RECOVERY 04:00 0.0 0.0 71 . 206/ 91 . . RECOVERY 05:00 0.0 0.0 68 . 183/ 87 . . RECOVERY 06:00 0.0 0.0 70 . 183/ 87 . . RECOVERY 06:29 0.0 0.0 75 . 159/ 85 . . Electronically signed by : Sherry Echevarria MD 10/06/2023 22:44:44
== END 2023-10-05 23:59 ==
LOC: RAD 11:48
PROVIDERS: PCP Family Medicine; Visit Provider Nurse Practitioner
DX: R07.9 Chest pain, unspecified (principal); I25.10 Atherosclerotic heart disease of native coronary artery without angina pectoris; I10 Essential (primary) hypertension; E78.5 Hyperlipidemia, unspecified; N28.9 Disorder of kidney and ureter, unspecified
CPT/HCPCS: 78452; 93017; 93018; A9502

== ENCOUNTER 2023-11-03 06:57 | Outpatient (CLI) | payer OTHER, SELFPAY ==
--- NOTE | 2023-11-03 07:01 | CT_ITS ---
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 A noncontrast coronary calcium scan was performed. A CT attenuation threshold of 130 Hounsfield units (HU) was used for the detection of calcium in contiguous voxels of 1 sq mm in area to be counted as individual lesions. Bolus tracking in the ascending aorta with a threshold of 180 HU was performed. Immediately afterwards, ECG synchronized cardiac CT was then performed from the cardiac base to apex using retrospective gating with ECG tube current modulation. A total of 85 mL of Isovue 370 mg/mL contrast medium was administered at 5 mL/sec followed by a saline flush using a biphasic injection protocol. A tube voltage of 120 KVp was used. The patient received the following medications prior to the cardiac CT. 0.8 mg of sublingual nitroglycerin The average heart rate at the time of acquisition was 52 bpm and regular. Image Reconstruction Transaxial images were reconstructed at 0.67 mm slide thickness. Data was reviewed interactively on an advanced workstation capable of 2 and 3-dimensional displays in all conventional reconstruction formats, including multiplanar reformations, maximum intensity projections, curved multiplanar reformations, and volume rendered reconstructions. When applicable, selected routine images describing the relevant coronary anatomy and pathology were saved and sent to PACS. Complications None Technical Quality Overall image quality was good. Coronary artery opacification was adequate. Total DLP (Dose-Length Product) is 1510.3 mGy-cm. The reported value represents the total of one or more individual components during the CT acquisition of this date and at this time, and as such, the same value may appear in more than one CT report depending on the interpreting/reporting physicians. COMPARISON None FINDINGS CT Coronary Calcium Scoring LMA (Left Main Artery) = 40 LAD (Left Anterior Descending) = 57 LCX (Left Coronary Circumflex) = 0 RCA (Right Coronary Artery) = 27 Total Calcium Score = 124 using the AJ-130 method. The observed calcium score of 124 is at 86th percentile for subjects of the same age, sex, and race/ethnicity. The interpretation of the calcium heart score is based on the following continuum*: 0 = no calcified plaque detected (risk of coronary artery disease is very low ??? less than 5%) 1-10 = calcium detected in extremely minimal levels (risk of coronary diseases is still low ??? less than 10%) 11-100 = mild levels of plaque detected with certainty (mild or minimal narrowing of heart arteries is likely) 101-400 = definite,at least moderate levels of plaque detected (relatively high risk of a heart attack within 3-5 years) >401-999 = extensive levels of plaque detected (high risk of heart attack, high levels of vascular disease are present, high likelihood of at least one significant coronary narrowing) *The calcium heart score quantifies the burden of coronary calcification/plaque in the coronary arteries. The calcium heart score is not able to evaluate the presence or burden of non-calcified (i.e. soft) plaque. There is also identifiable calcification in the aortic valve and ascending and descending thoracic aorta. Coronary CT Angiography The coronary arterial system is left dominant. Quantitative Stenosis Grading: Left Main (LM): The left main originates normally from the left sinus of Valsalva. The LM trifurcates into the left anterior descending artery, ramus intermedius, and left circumflex artery. There is mixed calcified/noncalcified plaque in the distal LM, with up to 25-49% luminal stenosis. Left Anterior Descending (LAD) and Diagonal Branches: The LAD gives off 2 diagonal branches. There is mixed calcified/noncalcified plaque in the proximal LAD, with up to 50-70% luminal stenosis. There is no evidence of LAD-myocardial bridge. Ramus-intermedius (RI): The RI is patent. Left Circumflex (LCX) and Obtuse Marginals (OM): The LCX gives off 2 Obtuse Marginal (OM) branches. The LCX and its branches are patent with no evidence of atherosclerosis. Right Coronary Artery (RCA): The RCA originates normally from the right sinus of Valsalva. The RCA is a non-dominant small caliber vessel. There is calcified plaque at the ostial RCA, with no evidence of luminal stenosis. Non-Coronary Cardiac Findings: Analysis of the left ventricular (LV) structure and function was performed after 3-D reconstruction of the LV from axial images, with user-corrected automatic contouring for assessment of LV volumes and user-defined reconstruction from oblique planes for measurement of 3-D cardiac structure and function. -The left ventricle systolic function is normal. -There is no left atrial appendage filling defect. Two right pulmonary veins and two left pulmonary veins drain normally into the left atrium. -No pericardial thickening or calcification. -Central and branch pulmonary arteries in the [id number] are unremarkable. -Thoracic aorta within the visualized thoracic aortic-branches in the [id number] is unremarkable. Extracardiac Structures No significant extra-cardiac findings. Note, however, that this study is focused on the cardiac findings. IMPRESSION -Presence of coronary calcification with an Agatston score = 124 using the AJ-130 method. -The observed calcium score of 124 is at 86th percentile for subjects of the same age, sex, and race/ethnicity. -Atherosclerotic plaque in the LM/LAD, with possible significant flow-limiting atherosclerosis of the proximal LAD. -CAD-RADS 3. Management recommendations per ACC/AHA guidelines*, as clinically appropriate. *Recommendations: CAD RADS 0: Reassurance. Consider non-atherosclerotic causes of chest pain. CAD RADS 1: Consider non-atherosclerotic causes of chest pain. Consider preventive therapy and risk factor modification. CAD RADS 2: Consider non-atherosclerotic causes of chest pain. Consider preventive therapy and risk factor modification, particularly for patients with nonobstructive plaque in multiple segments. CAD RADS 3: Consider further functional testing. Consider symptom-guided anti-ischemic and preventive pharmacotherapy as well as risk factor modification per published guideline statements. CAD RADS 4A: Consider further functional testing or invasive coronary angiography with revascularization per published guideline statements. Consider symptom-guided anti-ischemic and preventive pharmacotherapy as well as risk factor modification per published guideline statements. CAD RADS 4B: Invasive coronary angiography recommended with revascularization per published guideline statements. Consider symptom-guided anti-ischemic and preventive pharmacotherapy as well as risk factor modification per published guideline statements. CAD RADS 5: Consider invasive angiography and/or viability assessment with revascularization per published guideline statements. Consider symptom-guided anti-ischemic and preventive pharmacotherapy as well as risk factor modification per published guideline statements. CRITICAL RESULT None COMMUNICATION Per this written report The coronary and cardiac findings of this CCTA were reviewed, reported, and signed by Edouard Echevarria MD ([employer]) Conclusion Electronically signed by : Sherry Echevarria MD 11/10/2023 10:08:33
[2023-11-03 07:28] VITALS: BMI 64.8
[2023-11-03 08:21] LABS: Chloride 108 mmol/L (98-107); Potassium 3.9 mmoL/L (3.5-5.1); Sodium 139 mmol/L (136-145)
[2023-11-03 08:24] LABS: Anion Gap 4.9 mEq/L (5-15); Blood Urea Nitrogen 22 mg/dl (9-20); Carbon Dioxide 30 mmol/L (22.0-30.0); Creatinine Clearance Estimated 71 mL/min (50-200); Estimated Glomerular Filt Rate 68 ml/min (>60); GFR (African American) 82 ML/MIN (>60); Glucose 120 mg/dl (74-100)
[2023-11-03 08:37] VITALS: BP 137/87; PULSE 63; RESP 16; O2SAT 98
[2023-11-03] MEDS: NITROGLYCERIN 0.4MG SL TABLET 0.800000000000000044 MG SL (08:37)
[2023-11-03 08:40] VITALS: BP 140/82; PULSE 53; RESP 16; O2SAT 99
[2023-11-03 08:45] VITALS: BP 100/61; PULSE 55; RESP 16; O2SAT 98
[2023-11-03 09:00] VITALS: BP 126/79; PULSE 70; RESP 16; O2SAT 99
[2023-11-03] MEDS: IOPAMIDOL-370 (76%);100ML BOTTLE 85 ML IV (09:01)
[2023-11-03] MEDS: SODIUM CHLORIDE 0.9% 10ML SYR (RAD ONLY) 10 ML IV (09:01)
[2023-11-03] MEDS: 0.9 % SODIUM CHLORIDE 50 ML VIAL IV (09:01)
== END 2023-11-03 09:01 | disposition home or self-care (01) ==
PROVIDERS: PCP Family Medicine; Visit Provider Nurse Practitioner
DX: R07.9 Chest pain, unspecified (principal); R93.1 Abnormal findings on diagnostic imaging of heart and coronary circulation; R94.31 Abnormal electrocardiogram [ECG] [EKG]
CPT/HCPCS: 75571; 75574; 80048; Q9967